=== PATIENT | female | born 1990 | race Two or more races ===

== ENCOUNTER 2023-07-19 10:18 | Outpatient (AMB) | payer OTHER, SELFPAY ==
--- NOTE | 2023-07-19 10:19 | A.OFFVIS_ITS ---
Intake Vital Signs 07/19/23 10:21 Height 5 ft 1 in Weight 166 lb BMI 31.4 BP 118/74 Blood Pressure Location Rt brachial Position Sitting Pulse 81 Pulse Source Pulse Oximeter Pulse Oximetry (%) 100 Oxygen Delivery Method Room Air Intake Visit Reasons: ENP-Headache and dizziness/Confirmed Intake Note: Patient Presents for headache and dizziness. Patient states I get constant headaches including neck pain for a year now and it's gotten worst. , Allergies diphenhydramine [From Benadryl] Allergy (Unknown, Verified 07/19/23 10:24) Unknown HPI HPI Comments History of Present Illness Details Right-handed 33-yr-old female presents for new pt evaluation of headache disorder. Pt reports she started having headaches about a year ago w/o know preceding infection or injury. Over the year, the headaches have become more stronger. Headache questionnaire: Previous work-up? Head CT- in the ER- showed sinusitis. Typical headache characteristics: Prodrome symptoms? Unsure- constant headache Aura? Denies Location, quality, characteristics? Holocranial, but most strong on crown of head, the neck- pressure/pounding/squeezing pain. Pressure in the eyes. Pain intensity? 8/10. Associated symptoms? phonophobia, osmophobia, mild nausea at times, difficulty thinking, dizziness, tiredness, activity intolerance. Focal weakness, Parethesias, Autonomic s/s? At times her eyes water. Denies weakness Postdrome? n/a Triggers? unsure Any positional, valsalva, exertional, sexual activity triggers? none Menstrual triggers? denies Time of day? Constant Duration and Frequency? Constant How does headache impact your life? She is able to do what she needs to do, but it is bothersome. She also has a left lower jaw pain, left anabaptist, and left chest pain- stabbing pain. This comes for 1-2 minutes, 1-2 times in a dya, occurs about 5-6 days per week. Rated 8/10. Denies any associated s/s. Denies jaw pain while eating, talking. Sometimes her eyes twitch- either side. Current acute medication use/interventions: Tries not to take anything. Has cyclobenzaprine- helps w/ sleep Previous acute medication use: Unsure Current preventative medication use: None Previous preventative medication use: None Non-pharmacological interventions: Rest History of musculoskeletal disorders or injury? Fibromyalgia, prone to arm pain, neck pain, joint pain History of concussion/head injury? Denies History of mood disorder? Depression- worse because of the pain History of sleep disorder? Does not sleep well. Denies snoring. History of respiratory disease? Denies History of CV disease? Has chest pains, palpitations, SOB. Currently wearing a Holter- f/b [facility] cardiology. History of coagulopathy? Denies History of endocrine or metabolic disease? Denies History of seizure? Denies History of GI disorder? She is f/b [facility] [place] for cirrhosis of the liver- non- alcoholic. At times can have constipation. Family planning? None Family history of migraine or other headache disorder? No PFSH Family History (Updated 07/19/23 @ 10:26 by JACINTO Lamb) Brother Seizure Social History Alcohol intake: never Patient Tobacco Use Status: Never used Tobacco Review of Systems Const Details: See scanned ROS form Physical Exam Vital Signs: Last Vital Signs Pulse 81 07/19/23 10:21 BP 118/74 07/19/23 10:21 Pulse Ox 100 07/19/23 10:21 Oxygen Delivery Method Room Air 07/19/23 10:21 BMI result Body Mass Index 31.4 Const Orientation/consciousness: patient oriented x3 HEENT Other: Diffuse palpable holocranial scalp facial and neck tenderness. Head: Yes normocephalic Resp Effort & Inspection: normal respiratory effort and able to speak in complete sentences Neuro General: patient oriented x3 Cranial nerves: Yes CN's II-XII intact bilaterally Cognition (Neuro): normal cognition Gait exam (Neuro): Normal gait present Motor exam (neuro): 5/5 motor strength present throughout Deep tendon reflexes (DTR's): Right triceps reflex intensity grade: 2+, Left triceps reflex intensity grade: 2+, Rt Biceps (C5, C6): 2+, Left biceps reflex intensity grade: 2+, Right brachioradialis reflex intensity grade: 2+, Left brachioradialis reflex intensity grade: 2+, Right patellar reflex intensity grade: 2+ and Left patellar reflex intensity grade: 2+ Coordination: [id number] test normal, tandem gait normal and Romberg test negative Pupils: Normal pupillary reactivity/response: bilateral Psych Appearance: grossly normal Mental Status: mental status grossly normal Speech and movement: Normal speech and movement present Affect: normal affect Attitude: cooperative Thought process: Normal thought process present Assessment & Plan Assessment & Plan (1) Worsening headaches: Code(s): R51.9 - Headache, unspecified (2) Left facial pain: Code(s): R51.9 - Headache, unspecified (3) Autonomic attacks: Comment: eyes watering during headache attack Code(s): G40.109 - Localization-related (focal) (partial) symptomatic epilepsy and epileptic syndromes with simple partial seizures, not intractable, without status epilepticus Plan Pt advised to undergo brain MRI w/o to assess for secondary causes of worsening headaches w/ autonomic features. Will request records from [facility] cardiology and [facility] GI/liver specialist For overall headache management: Discussed importance of good self-care, including but not limited to maintaining a healthy diet, adequate fluid intake, adequate sleep, and engaging in regular physical activity. Track headaches For acute headache treatment: Discussed importance of taking acute medications at the first sign of headache, however stressed importance of avoiding acute medication overuse (especially with combined headache medications). May use OTC Ibuprofen prn. Cyclobenzaprine prn. Previous acute headache medication trials: No other Acute headache medication contraindications: Tylenol- d/t cirrhosis. ? triptans d/t cardiac s/s. ? gepants d/t cirrhosis For headache prevention medication: Discussed that preventative medications should be taken routinely as prescribed for best effect, it may take several weeks for full effect to take effect. Start Riboflavin 400mg qam Start Magnesium 400mg qhs Start Gabapentin 100-300mg qhs May stagger starting these Previous headache prevention medication trials: None Headache prevention medication contraindications: ? TCAs d/t cardiac s/s. ? BBs pending cardiac work-up. Aimovig d/t prone to constipation. Pt to follow-up in 3 months or sooner prn. Orders: Orders MR head/brain wo con Today G40.109 - Localization-related (focal) (partial) symptomatic epilepsy and epileptic syndromes with simple partial seizures, not intractable, without status epilepticus, R51.9 - Headache, unspecified Medications: New riboflavin (vitamin B2) 400 mg PO DAILY 30 days 30 tabs 6RF gabapentin 100 - 300 mg (1 - 3 x 100 mg) PO BEDTIME 30 days 90 caps 3RF magnesium oxide may hold for loose stools 400 mg PO BEDTIME 30 days 30 tabs 6RF Coding Level of Care Code New Pt Level 4 (58010) Diagnoses Worsening headaches R51.9 Left facial pain R51.9 Autonomic attacks G40.109
[2023-07-19 10:21] VITALS: BP 118/74; PULSE 81; O2SAT 100; BMI 31.4
== END 2023-07-19 11:27 | disposition home or self-care (01) ==
PROVIDERS: PCP Internal Medicine; Visit Provider Nurse Practitioner Family
DX: R51.9 Headache, unspecified (principal); G40.109 Localization-related (focal) (partial) symptomatic epilepsy and epileptic syndromes with simple partial seizures, not intractable, without status epilepticus
CPT/HCPCS: 99204

== ENCOUNTER → 2023-07-19 10:18 | Outpatient (BNVA) | payer OTHER, SELFPAY | PROVIDERS: PCP Internal Medicine; Visit Provider Nurse Practitioner Family | DX: G40.109 Localization-related (focal) (partial) symptomatic epilepsy and epileptic syndromes with simple partial seizures, not intractable, without status epilepticus (principal); R51.9 Headache, unspecified | CPT/HCPCS: 99202 ==

== ENCOUNTER 2023-09-04 09:08 | Outpatient (REF) | payer OTHER, SELFPAY ==
--- NOTE | ~2023-09-04 | MR_ITS ---
EXAMINATION: MR BRAIN WITHOUT CONTRAST CLINICAL INFORMATION: Headaches. COMPARISON: None. TECHNIQUE: Multiplanar, multisequence imaging of the brain was performed without contrast. FINDINGS: No diffusion abnormalities are identified to suggest an acute infarct. The ventricles are normal in size. No mass effect or midline shift is seen. No brain parenchymal signal abnormality is noted. No extra-axial fluid collections are seen. The brainstem and cerebellum are normal. The gradient refocused acquisition is normal. The craniovertebral junction, marrow signal, and midline structures are normal. The major intracranial flow voids at the level of the ak chin of Anne are preserved. The dural venous sinus flow voids are maintained. The mastoid air cells are well aerated. Mild ethmoid sinus mucosal thickening noted. There is an incidental small submucosal retention cyst in the roof of the nasopharynx to the left of midline. MR/MR head/brain wo con IMPRESSION: Normal MRI of the brain. No acute process.
== END 2023-09-04 09:09 | disposition home or self-care (01) ==
LOC: HO.MRI 09:08
PROVIDERS: Visit Provider Nurse Practitioner Family
DX: R51.9 Headache, unspecified (principal); G40.109 Localization-related (focal) (partial) symptomatic epilepsy and epileptic syndromes with simple partial seizures, not intractable, without status epilepticus
CPT/HCPCS: 70551

== ENCOUNTER 2023-10-23 11:21 | Outpatient (AMB) | payer OTHER, SELFPAY ==
[2023-10-23 11:43] VITALS: BP 116/82; PULSE 74; O2SAT 100; BMI 32.1
--- NOTE | 2023-10-23 11:43 | A.OFFVIS_ITS ---
Intake Vital Signs 10/23/23 11:43 Height 5 ft 1 in Weight 170 lb BMI 32.1 BP 116/82 Blood Pressure Location Rt brachial Position Sitting Pulse 74 Pulse Source Pulse Oximeter Pulse Oximetry (%) 100 Oxygen Delivery Method Room Air Intake Visit Reasons: 3 mnts f/u CHOW and dizziness - CONF Intake Note: Patient presents for 3 months follow up. Im feeling better but I feel like they haven't left for good Allergies diphenhydramine [From Benadryl] Allergy (Unknown, Verified 10/23/23 11:56) Unknown HPI HPI Comments History of Present Illness Details 33-year-old female presents for f/u visi t of migraine Pt denies any significant interval medical changes. Pt continues to have a daily headache with varying intensity. Typically 3 more severe days per week. She has not had as much left lower jaw pain. However when her neck is more bothersome she will have bilateral lateral and anterior neck tightness, like the veins are tight she states. She was confused on which headache medication she was supposed to take as needed and what was for prevention. Had tried riboflavin as needed, which was ineffective. On review of records, patient has tried sumatriptan in the past. She denies having any adverse effects from this. #1 Baseline headache characteristics: Severes. Holocranial, but most strong on crown of head, the neck- pressure/pounding/squeezing pain. Pressure in the eyes. A/wphonophobia, osmophobia, mild nausea at times, difficulty thinking, dizziness, tiredness, activity intolerance, At times her eyes water. #2 Baseline headache characteristics: Severe left lower jaw pain, left restoration, and left chest pain- stabbing pain. This comes for 1-2 minutes, 1-2 times in a days, occurs about 5-6 days per week. Without associated s/s or jaw pain while eating, talking. PFSH Family History Brother Seizure Social History Alcohol intake: never Patient Tobacco Use Status: Never used Tobacco Physical Exam Vital Signs: Last Vital Signs Pulse 74 10/23/23 11:43 BP 116/82 10/23/23 11:43 Pulse Ox 100 10/23/23 11:43 Oxygen Delivery Method Room Air 10/23/23 11:43 BMI result Body Mass Index 32.1 Const General: cooperative and no acute distress Orientation/consciousness: patient oriented x3 Resp Effort & Inspection: normal respiratory effort and able to speak in complete sentences Neuro General: patient oriented x3 Cranial nerves: Yes CN's II-XII intact bilaterally Cognition (Neuro): normal cognition Psych Appearance: grossly normal Mental Status: mental status grossly normal Speech and movement: Normal speech and movement present Affect: normal affect Attitude: cooperative Assessment & Plan Assessment & Plan (1) Left facial pain: Code(s): R51.9 - Headache, unspecified (2) Chronic migraine without aura: Code(s): G43.709 - Chronic migraine without aura, not intractable, without status migrainosus (3) Fibromyalgia: Code(s): M79.7 - Fibromyalgia Plan Reviewed brain MRI w/o- normal. Reviewed [facility] cardiology and [facility] GI/liver specialist Check CBC and CMP ? For overall headache management: Continue to optimize good self-care, including but not limited to maintaining a healthy diet, adequate fluid intake, adequate sleep, and engaging in regular physical activity. Track headaches ? For acute headache treatment: Discussed importance of taking acute medications at the first sign of headache, however stressed importance of avoiding acute medication overuse (especially with combined headache medications). May use OTC Ibuprofen prn. Trial sumatriptan 50-100 mg as needed, may repeat x1 in 2 hours. Max 2 tabs per day. Cyclobenzaprine prn. Previous acute headache medication trials: No other Acute headache medication contraindications: Tylenol- d/t cirrhosis. ? gepants d/t cirrhosis ? For headache prevention medication: Discussed that preventative medications should be taken routinely as prescribed for best effect, it may take several weeks for full effect to take effect. Start taking Riboflavin 400mg daily in a.m. Magnesium 400mg qhs Start Gabapentin 100-300mg qhs- discuss this may help her fibromyalgia symptoms as well. Previous headache prevention medication trials: Amitriptyline- caused dizziness. Headache prevention medication contraindications: ? TCAs d/t cardiac s/s. Aimovig d/t prone to constipation. ? ?Pt to follow-up in 3 months or sooner prn. Orders: Orders Complete Blood Count Auto Diff Today G40.109 - Localization-related (focal) (partial) symptomatic epilepsy and epileptic syndromes with simple partial seizures, not intractable, without status epilepticus, R51.9 - Headache, unspecified Comprehensive Met. Panel Today G40.109 - Localization-related (focal) (partial) symptomatic epilepsy and epileptic syndromes with simple partial seizures, not intractable, without status epilepticus, R51.9 - Headache, unspecified Medications: New sumatriptan succinate (0.5 - 1 x 100 mg) 50 - 100 mg orally at onset of headache, may repeat in 2 hrs PRN; max 2 tabs per day or 4 tabs/week 30 days 12 tabs 6RF migraine headache Refilled gabapentin 100 - 300 mg (1 - 3 x 100 mg) PO BEDTIME 30 days 90 caps 3RF riboflavin (vitamin B2) 400 mg PO DAILY 30 days 30 tabs 6RF magnesium oxide may hold for loose stools 400 mg PO BEDTIME 30 days 30 tabs 6RF Coding Level of Care Code Est Pt Level 4 (79410) Diagnoses Left facial pain R51.9 Chronic migraine without aura G43.709 Fibromyalgia M79.7
== END 2023-10-23 12:33 | disposition home or self-care (01) ==
PROVIDERS: PCP Internal Medicine; Visit Provider Nurse Practitioner Family
DX: R51.9 Headache, unspecified (principal); G43.709 Chronic migraine without aura, not intractable, without status migrainosus; M79.7 Fibromyalgia
CPT/HCPCS: 99214

== ENCOUNTER → 2023-10-23 11:21 | Outpatient (BNVA) | payer OTHER, SELFPAY | PROVIDERS: PCP Internal Medicine; Visit Provider Nurse Practitioner Family | DX: G43.709 Chronic migraine without aura, not intractable, without status migrainosus (principal); R51.9 Headache, unspecified; M79.7 Fibromyalgia | CPT/HCPCS: 99212 ==

== ENCOUNTER 2024-08-11 14:46 | Outpatient (AMB) | payer OTHER, SELFPAY ==
--- NOTE | 2024-08-11 14:53 | A.OFFVIS_ITS ---
Vital Signs 08/11/24 14:56 Height 5 ft 1 in Weight 158 lb 4 oz BMI 29.9 BP 100/70 Blood Pressure Location Lt brachial Position Sitting Intake Visit Reasons: 3m follow up CHOW/dizziness - Intake Note: Patient presents for a 9 mo fu for migraine. Dry Kiln Worker Required: Yes Dry Kiln Worker Language: Taker Down Services: Dry Kiln Worker Present Dry Kiln Worker Name: Radha Cowan Accompanied by: Self / Same As Patient Allergies diphenhydramine [From Benadryl] Allergy (Unknown, Verified 08/11/24 14:55) Unknown Medication List - Last Reconciled 08/11/24 by Daniela Zhong, KARMEN carvedilol 6.25 mg PO BID cyclobenzaprine 5 mg PO BEDTIME PRN 30 days galcanezumab-gnlm (Emgality Pen) 240 mg (2 mL) subcut ONCE 30 days ibuprofen 800 mg PO TID magnesium oxide 400 mg PO BEDTIME 30 days meclizine 12.5 mg PO DAILY riboflavin (vitamin B2) 400 mg PO DAILY 30 days sumatriptan succinate 50 - 100 mg orally at onset of headache, may repeat in 2 hrs PRN; max 2 tabs per day or 4 tabs/week 30 days tramadol 50 mg PO QID PRN HPI Comments Details: 33-year-old female presents for f/u visit of migraine Pt reports she has had a small lump in the right upper neck x's 6-7 months. Recent right occipital US showed a hypoechoic nonvascular subcutaneous lesion measuring 0.7 x 1.1 x 0.2 cm w/ DDx of small lipoma, lymph node or other abnormality. Pt reports she is supposed to have a f/u gneral surgery consult to discuss biopsy. She wonders if this is r/t her headaches. Pt continues to have a daily headache with varying intensity. She has a hard time stating how frequent her more severe migraine attacks are. She has almost daily right or left lower jaw pain. Pt continues to have bilateral lateral and anterior neck tightness. She is not taking anything for her headaches at this time. #1 Baseline headache characteristics: Severe. Holocranial, but most strong on crown of head, the neck- pressure/pounding/squeezing pain. Pressure in the eyes. A/wphonophobia, osmophobia, mild nausea at times, difficulty thinking, dizziness, tiredness, activity intolerance, At times her eyes water. #2 Baseline headache characteristics: Severe left lower jaw pain, left holiness, and left chest pain- stabbing pain. This comes for 1-2 minutes, 1-2 times in a days, occurs about 5-6 days per week. Without associated s/s or jaw pain while eating, talking. PFSH Family History Brother Seizure Social History Alcohol intake: never Patient Tobacco Use Status: Never used Tobacco Physical Exam Vital Signs: Last Vital Signs BP 100/70 08/11/24 14:56 BMI result Body Mass Index 29.9 Const General: cooperative and no acute distress Orientation/consciousness: patient oriented x3 Resp Effort & Inspection: normal respiratory effort and able to speak in complete sentences Neuro Other: No palpable scalp tenderness. Tiny small palpable mass along right upper posterior cervical region. General: patient oriented x3 Cranial nerves: Yes CN's II-XII intact bilaterally Cognition (Neuro): normal cognition Psych Appearance: grossly normal Mental Status: mental status grossly normal Speech and movement: Normal speech and movement present Affect: normal affect Attitude: cooperative Assessment & Plan Assessment & Plan (1) Chronic migraine without aura: Code(s): G43.709 - Chronic migraine without aura, not intractable, without status migrainosus Category: Medical (2) Fibromyalgia: Code(s): M79.7 - Fibromyalgia Category: Medical (3) Facial pain: Comment: Left or right sided lower mandible pain Code(s): R51.9 - Headache, unspecified Category: Medical Plan Brain MRI w/o- normal. Reviewed right occipital region US- 1cm small lesion suggestive of lipoma, lymph node. This is not likely contributing to her migarines and neck pain. F/u w/ PCP and general surgeon as planeed. ? For overall headache management: Continue to optimize good self-care, including but not limited to maintaining a healthy diet, adequate fluid intake, adequate sleep, and engaging in regular physical activity. Track headaches ? For acute headache treatment: Discussed importance of taking acute medications at the first sign of headache, however stressed importance of avoiding acute medication overuse (especially with combined headache medications). May use OTC Ibuprofen prn. Again rial sumatriptan 50-100 mg as needed, may repeat x1 in 2 hours. Max 2 tabs per day. Resume Cyclobenzaprine 5mg qhs prn muscle pain/spasm. Previous acute headache medication trials: No other Acute headache medication contraindications: Tylenol- d/t cirrhosis. ? gepants d/t cirrhosis ? For headache prevention medication: Discussed that preventative medications should be taken routinely as prescribed for best effect, it may take several weeks for full effect to take effect. Resume Riboflavin 400mg daily in a.m. Resume Magnesium 400mg qhs Start Emgality 120mg/ml auto-injection: Loading dose: 240mg (2 120mg/ml autoinjections) via subcutaneous injection in 2 different sites). Then in 30 days, start Maintenance dose 120mg (120mg/ml autoinjector) subcutaneous injection every month. Patient requests injection training once Emgality available. Important considerations: * Emgality will likely require insurance prior authorization prior to receiving it from the pharmacy. * Potential side effects include allergic reaction and injection site reactions. * Store Emgality in it's original packaging in order to protect from light. * Emgality can be left out of the fridge for?up to 7 days at a temperature not above 86?F. * If these conditions are exceeded, then Emgality must be thrown away. * Once Emgality has been stored out of refrigeration, do not place it back in the refrigerator. Continue Carvedilol- for CV tx, however may help headache as well. Stop Gabapentin 100-300mg qhs- pt not taking. Previous headache prevention medication trials: Amitriptyline- caused dizziness. Headache prevention medication contraindications: ? TCAs d/t cardiac s/s. Aimovig d/t prone to constipation. ? ?Pt to follow-up in 3-6 months or sooner prn. Medications: New galcanezumab-gnlm (Emgality Pen) Loading dose: 120 mg subcu injection x2 in alternate sites (total 240 mg). To be followed by maintenance dose of 120 mg subcu q.month. 240 mg (2 mL) subcut ONCE 2 mL 0RF 30 days Changed From cyclobenzaprine 5 mg PO BEDTIME PRN To cyclobenzaprine 5 mg PO BEDTIME PRN 30 tabs 3RF dolor en el maria alejandra 30 days Refilled magnesium oxide may hold for loose stools 400 mg PO BEDTIME 30 tabs 6RF 30 days riboflavin (vitamin B2) 400 mg PO DAILY 30 tabs 6RF 30 days sumatriptan succinate 50 - 100 mg orally at onset of headache, may repeat in 2 hrs PRN; max 2 tabs per day or 4 tabs/week 12 tabs 6RF migraine headache 30 days Discontinued gabapentin Discontinued Reason: Doctor's Order 100 - 300 mg (1 - 3 x 100 mg) PO BEDTIME 30 days 90 caps 3RF Coding Level of Care Code Est Pt Level 4 (38444) Diagnoses Chronic migraine without aura G43.709 Fibromyalgia M79.7 Facial pain R51.9
[2024-08-11 14:56] VITALS: BP 100/70; BMI 29.9
== END 2024-08-11 16:01 | disposition home or self-care (01) ==
PROVIDERS: PCP Internal Medicine; Visit Provider Nurse Practitioner Family
DX: G43.709 Chronic migraine without aura, not intractable, without status migrainosus (principal); M79.7 Fibromyalgia; R51.9 Headache, unspecified
CPT/HCPCS: 99214

== ENCOUNTER → 2024-08-11 14:46 | Outpatient (BNVA) | payer OTHER, SELFPAY | PROVIDERS: PCP Internal Medicine; Visit Provider Nurse Practitioner Family | DX: G43.709 Chronic migraine without aura, not intractable, without status migrainosus (principal); M79.7 Fibromyalgia | CPT/HCPCS: 99212 ==

== ENCOUNTER → 2025-02-17 15:18 | Outpatient (BNVA) | payer OTHER, SELFPAY | PROVIDERS: PCP Internal Medicine; Visit Provider Nurse Practitioner Family | DX: G43.709 Chronic migraine without aura, not intractable, without status migrainosus (principal); R51.9 Headache, unspecified; M54.2 Cervicalgia | CPT/HCPCS: 99212 ==

== ENCOUNTER → 2025-02-17 15:18 | Outpatient (AMB) | payer OTHER, SELFPAY ==
--- OUTSIDE RECORDS SUMMARY | 2025-02-17 15:30 | XMS_ITS | Clinical Summary ---
Author Organization [facility] Address [address] [place] [address] Phone Care Team Providers Care Metal Solderer Name Role Phone Mode Vasquez MD Primary Care Provider Allergies Active Allergy Reactions Criticality Noted Date Comments Aspirin Shortness of breath High 12/23/2021 Diphenhydramine Palpitations Low 12/11/2021 Diphenhydramine Hcl 11/01/2021 Iron Dextran Other 12/23/2021 Chest tightness Medications levonorgestreL (MIRENA) 21 mcg/24 hr (8 yrs) 52 mg IUD by Intrauterine route. Active magnesium oxide (MAG-OX) 400 mg (241.3 elemental magnesium) tablet TOME JOSE TABLETA POR V A ORAL BEDTIME FOR 30 DAYS MAY HOLD FOR LOOSE STOOLS 08/11/20 24 Active carvediloL (COREG) 3.125 mg tablet Take 1 tablet (3.125 mg total) by mouth 2 (two) times a day with meals. 180 tablet 1 12/04/19 25 Active diclofenac (VOLTAREN) 1 % topical gel Apply 4 g topically 2 times daily as needed for Other (joint pain). 05/22/20 24 025 Discontinu ed(Discont inued by another clinician) SUMAtriptan (IMITREX) 100 mg tablet TAKE 1/2 TO 1 TAB AT ONSET OF HEADACHE, MAY REPEAT IN 2 HRS NEEDED MAX 2 TABS/DAY OR 4 TABS/WEEK 08/11/20 24 025 Discontinu ed(Discont inued by another clinician) cyclobenzaprin e (FLEXERIL) 5 mg tablet TOME 1 TABLETA POR V A ORAL TODOS LOS D AL ACOSTARSE CUANDO SEA NECESARIO 08/11/20 24 025 Discontinu ed(Discont inued by another clinician) Active Problems Problem Noted Date Diagnosed Date Iron deficiency anemia 05/04/2024 Dyspnea 06/13/2023 Overview (06/30/2024): Last Assessment & Plan: The patient has symptoms of palpitations and dyspnea with exertion. Previous echocardiogram showed a normal biventricular function and no significant valvular disease. We will order an exercise stress test to rule out any exercise-induced arrhythmias. Also, the exercise stress test would allow us the possibility to rule out any ischemic ECG changes with exertion. On the other hand, we will order a pulmonary function test to rule out any underlying pulmonary disease as a cause of her symptoms. Chest pain 07/10/2022 Overview (06/30/2024): Last Assessment & Plan: The patient has a cardiac CT scan scheduled for today to rule out obstructive coronary artery disease as a cause of her symptoms. We discussed that her symptoms could be musculoskeletal in etiology as well as her history of fibromyalgia. I recommend she continue to follow with her primary care provider should her cardiac CT scan be normal. Assessment & Plan (10/12/2024 1:46 PM EST): The patient recently underwent a cardiac CT scan March 2024 which showed normal coronary arteries and no extracardiac structures found. We discussed this in depth today. There was also no coronary artery calcification noted. We discussed her echocardiogram in the past as well and extensive cardiac history which has all been reassuring. She will continue to follow with her primary care provider regarding noncardiac causes and she will also continue to follow with hematology. Palpitation 07/05/2022 Overview (06/30/2024): Last Assessment & Plan: The patient has been endorsing episodes of palpitations which has been going on for years. She underwent a 30-day looping monitor July 2023 which showed no evidence of sustained arrhythmias and normal sinus rhythm. Most recently, she underwent a 48-hour Holter monitor February 2024 which showed predominantly sinus rhythm with an average heart rate of 76 bpm, one PAC and no PVCs. During the episodes of palpitations and chest pain, EKG showed normal sinus rhythm. We discussed these results in depth today. She will continue her current dose of carvedilol and attempt to avoid the usual triggers including caffeine consumption, alcohol consumption, cigarette smoking, and adequate sleeping patterns, and stress. She will continue to follow-up with her primary care provider regarding noncardiac causes of her symptoms. Assessment & Plan (10/12/2024 1:46 PM EST): Patient has chronic palpitations which has been going on for years. She denies any significant changes or symptoms today. In the past, she underwent a 30-day looping monitor July 2023 which showed no evidence of sustained arrhythmias and normal sinus rhythm. Most recently, 48-hour Holter monitor February 2024 which showed predominant sinus rhythm with an average heart rate of 76 bpm and 1 PAC and no PVCs. During the episodes of palpitations and chest pain, EKG shows normal sinus rhythm. We reviewed these results again today. She continues on carvedilol low-dose. We discussed that her symptoms of dizziness are likely not cardiac related given her blood pressures have been within normal limits without any low blood pressure readings and denies any positional hypotension. She will attempt to avoid the usual triggers of palpitations including caffeine consumption, alcohol consumption, cigarette smoking, and inadequate sleeping patterns and stress. I encouraged her to continue to follow with her primary care provider and hematology regarding noncardiac causes of her symptoms. Orders: ECG 12 lead Cirrhosis of liver with ascites (CMS/HCC V24, CM S/HCC V28) 11/08/2021 Thrombocytopenia (CMS/HCC V24) 11/08/2021 Splenomegaly 10/17/2020 Beta thalassemia trait 10/13/2020 Overview (05/04/2024): Last Assessment & Plan: On tri labs / hemoglobin electrophoresis Fu FOB electrophoresis GC??11/02? Will clarify if visit done Last Assessment & Plan: On tri labs / hemoglobin electrophoresis Fu FOB electrophoresis GC??11/02? 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 She has a history of splenomegally/portal hypertension with thrombocytopenia. Work up so far has been unrevealing: Hep B core ab negative, surface Ag negative (non immune), hep A Ig reactive, HCV negative, CBC with hgb 10.2, wbc 3.0, and platelet 64, ferritin low 24, iron low 29, alpha 1-antitrypsin wnl, ceruloplasmin wnl, schistosoma IgG negative, AFP negative, Anti Smooth muscle negative, PAT negative, Immune globulins normal. Outside liver biopsy consistent with quiescent cirrhosis - no diagnostic features reported. 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 Now about 24 weeks with no evidence of any new liver related complaints: long-standing RUQ pain. She is concerned about the risks associated with the thrombocytopenia and bleeding at the time of delivery. I have reassured her that liver patients generally tolerate this well but that the decision, if needed to give her platelets will depend on the Ob doctors at the time of delivery. - No varices - No evidence of GI bleeding - No ascites - No HE - Liver function and liver blood tests remain normal. Well compensated liver disease with MELD of 8 Reviewed risks associated with her . We will see in 6 months and arrange ultrasound on day of her visit. Patient with diagnosis of cirrhosis presenting, previously worked up at [facility] (including a report of a liver biopsy - which reported cirrhosis without a diagnostic cause identified) unclear etiology. She has a history of splenomegally/portal hypertension with thrombocytopenia. Work up so far has been unrevealing: Hep B core ab negative, surface Ag negative (non immune), hep A Ig reactive, HCV negative, CBC with hgb 10.2, wbc 3.0, and platelet 64, ferritin low 24, iron low 29, alpha 1-antitrypsin wnl, ceruloplasmin wnl, schistosoma IgG negative, AFP negative, Anti Smooth muscle negative, PAT negative, Immune globulins normal. Outside liver biopsy consistent with quiescent cirrhosis - no diagnostic features reported. Last Assessment & Plan: # Cryptogenic cirrhosis The patient has a history of cirrhosis without clear etiology and findings on imaging consistent with portal hypertension. From a liver disease perspective, she is doing quite well and is well-compensated. Her transaminases were mildly elevated at her last visit, so will re-check these. In addition, given recent B[place]o VII guideline update, will increase carvedilol to 6.25mg BID given patient is tolerating this medication well in an effort to prevent complications from cirrhosis. 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 Encounters Date Type Department Care Team Description 01/20/2025 4:00 PM EDT Office Visit Internal Medicine - [facility] [address] [place] [phone] Mode Vasquez MD Encounter for routine adult health examination without abnormal findings (Primary Dx); Cirrhosis of liver with ascites, unspecified hepatic cirrhosis type (CMS/HCC V24, CMS/HCC V28); Iron deficiency anemia, unspecified iron deficiency anemia type; Beta thalassemia trait; Mixed hyperlipidemia 12/31/2024 10:00 AM EDT Ancillary Procedure [facility] [address] [place] [phone] Varicose veins of both lower extremities with pain 12/30/2024 3:59 PM EDT - 12/30/2024 11:59 PM EDT Hospital Encounter Radiology Department - [address] [phone] Cervical lymphadenopathy Discharge Disposition: Home or Self Care 12/03/2024 Telephone [facility] [address] [place] [address] Jenn Prakash NP Med Refill (Carvedilol) 11/30/2024 4:00 PM EDT Consult Vascular Surgery - [place] [address] [place] [phone] Niki Flor PA Varicose veins of both lower extremities with pain (Primary Dx); Varicose veins of both lower extremities, unspecified whether complicated from Last 3 Months Immunizations Name Administration Dates Next Due Hepatitis B (Xdaxfyh-R-Zbmxb , Recombivax HB-Adult) 19yo and older 06/15/2019,08/04/2018,02/17/2018 Influenza Quadravalent, MDCK , 0.5ml, preservative free (Flucelvax) 6mo and older 07/06/2022 Measles 08/30/2023 Mumps 08/30/2023 Rubella 08/30/2023 Td Tetanus diptheria (Tdvax) 7yo and older 09/27 Tdap Tetanus diptheria acell ular pertussis (Boostrix; Adacel) 7yo and older 02/15/2021,11/02/2016 Surgical History Surgery Date Site/Laterality Comments OTHER SURGICAL HISTORY PROCEDURE: DENIES PREVIOUS SURGERY Medical History Medical History Date Comments Splenomegaly 10/17/2020 DX:Splenomegaly 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 DX:Other secondary thrombocytopenia Other cirrhosis of liver (CM S/HCC V24, CMS/HCC V28) 09/23/2017 DX:Other cirrhosis of liver (HCC) Beta thalassemia trait 10/13/2020 DX:Beta t halassemia trait Iron deficiency anemia DX:Iron d eficiency anemia Cryptogenic cirrhosis (CMS/H CC V24, CMS/HCC V28) DX:Cryptogenic cirrhosis (HC C) Anemia DX:Anemia Thrombocytopenia (CMS/HCC V24) D X:Thrombocytopenia (HCC) Cirrhosis of liver (CMS/HCC V24, CMS/HCC V28) DX:Cirrhosis of liver (HCC) Fatty liver DX:Fatty liver Abdominal pain DX:Abdominal michael n Family History Medical History Relation Name Comments No Known Problems Father Other: hiv Mother Breast cancer Neg Hx Colon cancer Neg Hx Relation Name Status Comments Father Alive Mother Social History Tobacco Use Types Packs/Day Years Used Date Smoking Tobacco: Never Smokeless Tobacco: Never Tobacco Cessation:Counseling Given: Not Answered Alcohol Use Standard Drinks/Week Comments Not Currently 0 (1 standard drink = 0.6 oz pur e alcohol) Comments No Sex and Gender Information Value Date Recorded Sex Assigned at Not on file Legal Sex Female 7:38 AM EST Gender Identity Not on file Sexual Orientation Not on file Obstetrics History Last Filed Vital Signs Vital Sign Reading Time Taken Comments Blood Pressure 116/84 01/20/2025 4:09 PM EDT Pulse 74 01/20/2025 4:09 PM EDT Temperature 37.1 ??C (98.8 ??F) 10/02/2024 1:15 PM ES T Respiratory Rate - - Oxygen Saturation 98% 10/12/2024 1:08 PM EST Inhaled Oxygen Concentration - - Weight 72.3 kg (159 lb 6.4 oz) 01/20/2025 4:09 P M EDT Height 167.6 cm (5' 6 ) 01/20/2025 4:09 PM EDT Body Mass Index 25.73 01/20/2025 4:09 PM EDT Plan of Treatment Upcoming Encounters Date Type Department Care Team (Late st Contact Info) Description 02/22/2025 3:30 PM EDT Office Visit General Surgery - [place] [address] [phone] Ivan Barnes MD [address] [address] 03/03/2025 3:00 PM EDT Office Visit Vascular Surgery [facility] [address] [phone] Niki Flor PA 300 [facility] [address] [place] [address] 04/01/2025 3:45 PM EDT Office Visit [facility] Hematology Oncology [address] [place] [phone] Talat Garcia MD [address] [place] [phone] Health Maintenance Due Date Last Done Comments Hepatitis A Vaccines (1 of 2 - Risk 2-dose series) 2010 Pneumococcal Vaccine: Pediatrics (0 to 5 Years) and At-Risk Patients (6 to 64 Years) (1 of 2 - PCV) 2010 Cervical Cancer Screening: Pap Smear 01/02/2012 COVID-19 Vaccine ( season) 2024 Influenza Vaccine (Season Ended) 2025 07/06/2022, 06/15/2019, 08/04/2018, Additional history exists Depression Screening 01/20/2026 01/20/2025 Social Influencers of Health Screening 01/20/2026 01/20/2025 Cholesterol Screening (Lipid Panel) 01/20/2030 01/20/2025, 11/14/2023 DTaP,Tdap,and Td Vaccines (4 - Td or Tdap) 02/15/2031 02/15/2021, 11/02/2016, 09/27/2016 Hepatitis B Vaccines Completed 06/15/2019, 08/04/2018, 02/17/2018 Hepatitis C Screening Completed 10/12/2020, 021 HIV Screening Completed 02/15/2021 HIB Vaccines Aged Out No longer eligi ble based on patient's age to complete this topic HPV Vaccines Aged Out No longer eligi ble based on patient's age to complete this topic IPV Vaccines Aged Out No longer eligi ble based on patient's age to complete this topic MMR Vaccines Aged Out No longer eligi ble based on patient's age to complete this topic Meningococcal ACWY Vaccine Aged Out N o longer eligible based on patient's age to complete this topic Meningococcal B Vaccine Aged Out No l onger eligible based on patient's age to complete this topic RSV Immunization Patients Under 20 months Aged Out No longer eligible based on patient's age to complete this topic Varicella Vaccines Aged Out No longer eligible based on patient's age to complete this topic Procedures Procedure Name Priority Date/Time Associated Diagnosis Comments LIPID PANEL WITH REFLEX TO DIRECT LDL Routine 01/20/2025 4:38 PM EDT Mixed hyperlipidemia VAS US DUPLEX LOWER EXT VENOUS INSUFFICIENCY BILATERAL Routine 12/31/2024 10:15 AM EDT Varicose veins of both lower extremities with pain US HEAD NECK SOFT TISSUE Routine 12/30/2024 4:06 PM EDT Cervical lymphadenopathy HM HIV SCREENING Routine 02/15/2021 HEPATITIS C SCREENING Routine 10/12/2020 from Last 3 Months or Most Recently Relevant to Health Maintenance Results * (ABNORMAL) Lipid panel with reflex to direct LDL (01/20/2025 4:38 PM EDT) Cholesterol 204(H) 0 - 200 mg/dL LAB CHEMISTRY METHOD 01/20/2025 7:35 PM EDT [facility] Triglycerides 84 0 - 150 mg/dL LAB CHEMISTRY METHOD 01/20/2025 7:35 PM EDT [facility] HDL 52 >=40 mg/dL LAB CHEMISTRY METHOD 01/20/2025 7:35 PM EDT [facility] LDL Calculated 135(H) 0 - 100 mg/dL LAB CHEMISTRY METHOD 01/20/2025 7:35 PM EDT [facility] VLDL Cholesterol Denny 16.8 mg/dL LAB CHEMISTRY METHOD 01/20/2025 7:35 PM EDT [facility] Non HDL Chol. (LDL+VLDL) 152(H) <145 mg/dL LAB CHEMISTRY METHOD 01/20/2025 7:35 PM EDT [facility] Chol/HDL Ratio 3.9 0.0 - 4.4 LAB CHEMISTRY METHOD 01/20/2025 7:35 PM EDT [facility] Blood Venous blood specimen / Unknown Venipuncture / Unknown 01/20/2025 4:38 PM EDT 01/20/2025 4:38 PM EDT us Mode Vasquez MD LAB BLOOD ORDERABLES Final Resu lt [facility] [address] [place] [address], * Vascular US duplex lower extremity venous insufficiency bilateral (12/31/2024 10:15 AM EDT) Left GSK ailin 0.33 cm CV VAS LAB Left GSDC ailin 0.19 cm CV VAS LAB Left GSMT ailin 0.35 cm CV VAS LAB Left GSPC ailin 0.26 cm CV VAS LAB Left GSPT ailin 0.24 cm CV VAS LAB Left SFJ Diameter 0.38 cm CV VAS LAB Left SSMC ailin 0.15 cm CV VAS LAB Left SSPC ailin 0.14 cm CV VAS LAB Right GSK ailin 0.35 cm CV VAS LAB Right GSDC ailin 0.17 cm CV VAS LAB Right GSMT ailin 0.28 cm CV VAS LAB Right GSPC ailin 0.29 cm CV VAS LAB Right GSPT ailin 0.29 cm CV VAS LAB Right SFJ Diameter 0.33 cm CV VAS LAB Right SSMC ailin 0.19 cm CV VAS LAB Right SSPC ailin 0.19 cm CV VAS LAB Anatomical Region Laterality Modality Vascular, Abdomen Ultrasound Narrative 01/03/2025 11:19 AM EDT Right: 1. ??The right lower extremity veins are compressible and there is no evidence of DVT in the right lower extremity venous system. 2. The GSV and SSV has more clinically significant reflux. Left: 1. ??The left lower extremity veins are compressible and there is no evidence of DVT in the left lower extremity venous system. 2. The GSV and SSV has no clinically significant reflux. Right Lower Venous No evidence of deep vein thrombosis in the common femoral, deep femoral, proximal femoral, mid femoral, distal femoral, popliteal, greater saphenous, small saphenous, posterior tibial and peroneal veins of the right leg. The vessels showed compressibility. Interrogation showed phasic and spontaneous Doppler signals. Right Venous Insufficiency Duplex The exam was performed with the patient in reverse Trendelenburg. Left Lower Venous No evidence of deep vein thrombosis in the common femoral, deep femoral, proximal femoral, mid femoral, distal femoral, popliteal, greater saphenous, small saphenous, posterior tibial and peroneal veins of the left leg. The vessels showed compressibility. Interrogation showed phasic and spontaneous Doppler signals. Left Venous Insufficiency Duplex The exam was performed with the patient in reverse trendelenburg. Assorter Details A gusman scale, color and doppler analysis ultrasound was performed. During the study longitudinal and transverse views were obtained. Pulsed wave doppler was performed. us Niki PALACIOS CV VASCULAR PROCEDURES Final Result * US Head Neck Soft Tissue (12/30/2024 4:06 PM EDT) Anatomical Region Laterality Modality Head and Neck Ultrasound 12/30/2024 10:3 8 PM EDT Impressions 12/30/2024 10:44 PM EDT No significant interval change in the probable lymph node in the right occipital/posterior neck region. ??No suspicious features. POS - [id number] -------- FINAL REPORT -------- Dictated By: Lianet Metz Dictated Date: 12/30/2024 22:38 ET Assigned Physician: Lianet Metz Reviewed and Electronically Signed By: Lianet Metz Signed Date: 12/30/2024 22:44 ET Workstation ID: [id number] Transcribed By: Self Edit Transcribed Date: 12/30/2024 22:38 ET Narrative 12/30/2024 10:44 PM EDT EXAM: Ultrasound head/neck soft tissue HISTORY: Follow-up probable reactive right posterior cervical lymphadenopathy. COMPARISON: 06/16/2024 FINDINGS: Sonography performed in the right occipital/posterior neck region. ??Allowing for variance in measurement caliper placement, no significant interval change in the size of the elongated hypoechoic lesion in the subcutaneous tissues which measures 1.4 x 0.6 x 0.3 cm. ??It appears to have a central echogenic component in keeping with a lymph node. ??No cortical thickening or hypervascularity on color Doppler. Procedure Note Lianet Metz MD - 12/30/2024 EXAM: Ultrasound head/neck soft tissue HISTORY: Follow-up probable reactive right posterior cervicallymphadenopathy. COMPARISON: 06/16/2024 FINDINGS: Sonography performed in the right occipital/posterior neck region.Allowing for variance in measurement caliper placement, no significantinterval change in the size of the elongated hypoechoic lesion in thesubcutaneous tissues which measures 1.4 x 0.6 x 0.3 cm. It appears tohave a central echogenic component in keeping with a lymph node. Nocortical thickening or hypervascularity on color Doppler. IMPRESSION: No significant interval change in the probable lymph node in the rightoccipital/posterior neck region. No suspicious features. POS - [id number] -------- FINAL REPORT -------- Dictated By: Lianet Metz Dictated Date: 12/30/2024 22:38 ET Assigned Physician: Lianet Metz Reviewed and Electronically Signed By: Lianet Metz Signed Date: 12/30/2024 22:44 ET Workstation ID: [id number] Transcribed By: Self Edit Transcribed Date: 12/30/2024 22:38 ET Ivan Barnes MD IMG US PROCEDURES Final Result * HIV Screening (02/15/2021) HIV Screening abstracted Historical Provider HEALTH MAINTENANCE Final Result * Hepatitis C Screening (10/12/2020) Hepatitis C Screening abstracted Historical Provider HEALTH MAINTENANCE Final Result from Last 3 Months or Most Recently Relevant to Health Maintenance Insurance [facility] Care Teams Metal Solderer Relationship Specialty Start Date End Date Mode Vasquez MD [address] [place], [place] [address] [address] PCP - General Internal Medicine 08/17/21
[2025-02-17 15:42] VITALS: BP 120/78; PULSE 68; O2SAT 98; BMI 29.5
--- NOTE | 2025-02-17 15:42 | A.OFFVIS_ITS ---
Vital Signs 02/17/25 15:42 Height 5 ft 1 in Weight 156 lb BMI 29.5 BP 120/78 Blood Pressure Location Rt brachial Position Sitting Pulse 68 Pulse Source Pulse Oximeter Pulse Oximetry (%) 98 Oxygen Delivery Method Room Air Intake Visit Reasons: Follow Up 6mo Intake Note: Patient presents 6 month follow up for migraines. 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 Accompanied by: Self / Same As Patient Allergies diphenhydramine [From Benadryl] Allergy (Unknown, Verified 02/17/25 15:44) Unknown Medication List - Last Reconciled 02/17/25 by KARMEN Heller carvedilol 6.25 mg PO BID cyclobenzaprine 5 mg PO BEDTIME PRN 30 days galcanezumab-gnlm (Emgality Pen) 240 mg (2 mL) subcut ONCE 30 days ibuprofen 800 mg PO TID magnesium oxide 400 mg PO BEDTIME 30 days meclizine 12.5 mg PO DAILY riboflavin (vitamin B2) 400 mg PO DAILY 30 days sumatriptan succinate 50 - 100 mg orally at onset of headache, may repeat in 2 hrs PRN; max 2 tabs per day or 4 tabs/week 30 days tramadol 50 mg PO QID PRN HPI Comments Details: 33-year-old female presents for f/u visit of migraine Pt reports she had general surgery consult for the previously identified right occipital subcutaneous lesion measuring 0.7 x 1.1 x 0.2 cm w/ DDx of small lipoma, lymph node or other abnormality.- for which, they did not recommend surgical intervention. Reviewed interval lab work at [facility], CBC showed very mild anemia, and CMP within normal limits. Patient states she did not start the sumatriptan or Emgality, as she was worried about medication effects. When asked which medication effect she was concerned about, she states any possible effect of medication. Pt continues to have a daily headache with varying intensity. She has a hard time stating how frequent her more severe migraine attacks are. She also is having pain running from different places in the occipital region up over the head She has almost daily right or left lower jaw pain. Pt continues to have bilateral lateral and anterior neck tightness. #1 Baseline headache characteristics: Severe. Holocranial, but most strong on crown of head, the neck- pressure/pounding/squeezing pain. Pressure in the eyes. A/wphonophobia, osmophobia, mild nausea at times, difficulty thinking, dizziness, tiredness, activity intolerance, At times her eyes water. #2 Baseline headache characteristics: Severe left lower jaw pain, left amish, and left chest pain- stabbing pain. This comes for 1-2 minutes, 1-2 times in a days, occurs about 5-6 days per week. Without associated s/s or jaw pain while eating, talking. PFSH Family History Brother Seizure Social History Alcohol intake: never Patient Tobacco Use Status: Never used Tobacco Physical Exam Vital Signs: Last Vital Signs Pulse 68 02/17/25 15:42 BP 120/78 02/17/25 15:42 Pulse Ox 98 02/17/25 15:42 Oxygen Delivery Method Room Air 02/17/25 15:42 BMI result Body Mass Index 29.5 Const General: cooperative and no acute distress Orientation/consciousness: patient oriented x3 Resp Effort & Inspection: normal respiratory effort and able to speak in complete sentences Neuro General: patient oriented x3 Cranial nerves: Yes CN's II-XII intact bilaterally Cognition (Neuro): normal cognition Psych Appearance: grossly normal Mental Status: mental status grossly normal Speech and movement: Normal speech and movement present Affect: normal affect Attitude: cooperative Assessment & Plan Assessment & Plan (1) Chronic migraine without aura: Code(s): G43.709 - Chronic migraine without aura, not intractable, without status migrainosus Category: Medical (2) Facial pain: Comment: Left or right sided lower mandible pain Code(s): R51.9 - Headache, unspecified Category: Medical (3) Cervicalgia: Code(s): M54.2 - Cervicalgia Category: Medical Plan For overall headache, facial pain, cervicalgia management: Discussed etiology offered different headache, facial pain, cervicalgia symptoms, and how these can overlap and effect 1 another. Patient is not interested in taking new prescription medications at this time, thus discussed nutraceuticals and neuromodulation therapies that have been shown to be effective in the headache literature. Continue to optimize good self-care, including but not limited to maintaining a healthy diet, adequate fluid intake, adequate sleep, and engaging in regular physical activity. Track headaches PT eval and treat, which patient is agreeable to. ? For acute headache treatment: Discussed importance of taking acute medications at the first sign of headache, however stressed importance of avoiding acute medication overuse (especially with combined headache medications). May use OTC Ibuprofen prn. Discontinue sumatriptan 50-100 mg as needed order- as patient is not interested in starting this at this time. Cyclobenzaprine 5mg qhs prn muscle pain/spasm. Patient may benefit from trying a neuromodulation device such as a Cefaly or He ad-a-Term, transcutaneous electrical neurostimulation device (TENs device), which can be used as needed at onset of migraine attack. This may help facial pain as well. Information shared patient on how to order this- she may order this online, no prescription needed. Previous acute headache medication trials: No other Acute headache medication contraindications: Tylenol- d/t cirrhosis. ? gepants d/t cirrhosis ? For headache prevention medication: Discussed that preventative medications should be taken routinely as prescribed for best effect, it may take several weeks for full effect to take effect. Continue Riboflavin 400mg daily in a.m. Continue Magnesium 400mg qhs Start coenzyme Q 10 400mg daily in the morning taken with food containing fat- such as peanut butter, avocado, eggs. She also may benefit from trying the TENs device on a daily basis for migraine prevention. Discontinue Emgality 120mg/ml auto-injection order- patient is hesitant to start this at this time. Continue Carvedilol- for CV tx, however may help headache as well. Stop Gabapentin 100-300mg qhs- pt not taking. Previous headache prevention medication trials: Amitriptyline- caused dizziness. Headache prevention medication contraindications: ? TCAs d/t cardiac s/s. Aimovig d/t prone to constipation. ? ?Pt to follow-up in 6 months or sooner prn. Orders: Orders PT Evaluation and Treatment Today G43.709 - Chronic migraine without aura, not intractable, without status migrainosus, M54.2 - Cervicalgia, R51.9 - Headache, unspecified Medications: New coenzyme Q10 400 mg PO DAILY 90 days 90 caps 1RF Migraine prevention G43.709 - Chronic migraine without aura, not intractable, without status migrainosus Changed From riboflavin (vitamin B2) 400 mg PO DAILY 30 days 30 tabs 6RF To riboflavin (vitamin B2) 400 mg PO DAILY 90 days 90 tabs 3RF From magnesium oxide may hold for loose stools 400 mg PO BEDTIME 30 days 30 tabs 6RF To magnesium oxide may hold for loose stools 400 mg PO BEDTIME 90 days 90 tabs 3RF Discontinued sumatriptan succinate Discontinued Reason: Patient Refused (0.5 - 1 x 100 mg) 50 - 100 mg orally at onset of headache, may repeat in 2 hrs PRN; max 2 tabs per day or 4 tabs/week 30 days 12 tabs 6RF migraine headache galcanezumab-gnlm (Emgality Pen) Loading dose: 120 mg subcu injection x2 in alternate sites (total 240 mg). To be followed by maintenance dose of 120 mg subcu q.month. Discontinued Reason: Patient Refused 240 mg (2 mL) subcut ONCE 30 days 2 mL 0RF Coding Level of Care Code Est Pt Level 4 (58775) Diagnoses Chronic migraine without aura G43.709 Facial pain R51.9 Cervicalgia M54.2
== END ==
LOC: HO.HSMS 15:19
PROVIDERS: PCP Internal Medicine; Visit Provider Nurse Practitioner Family
DX: G43.709 Chronic migraine without aura, not intractable, without status migrainosus (principal); R51.9 Headache, unspecified; M54.2 Cervicalgia
CPT/HCPCS: 99214